=== PATIENT | female | born 1980 | race Caucasian/White ===

== ENCOUNTER 2017-12-20 09:21 | Observation (INO) | payer BC ==
[~2017-12-20] VITALS: Ht 160 cm; Wt 62.0 kg
[2017-12-20 10:17] LABS: BASOPHILS % (AUTO) 0.4 % (0-1); EOSINOPHILS # (AUTO) 0.1 X10'3 (0-0.9); EOSINOPHILS % (AUTO) 1.4 % (0-6); HEMATOCRIT 37.2 % (35.0-45.0); HEMOGLOBIN 12.3 g/dl (12.0-16.0); LYMPHOCYTES # (AUTO) 1.6 X10'3 (1.1-4.8); LYMPHOCYTES % (AUTO) 17.8 % (21-51); MEAN CORPUSCULAR HEMOGLOBIN 24.3 PG (27.0-31.0); MEAN CORPUSCULAR HGB CONC 33.1 % (33.0-36.5); MEAN CORPUSCULAR VOLUME 73.4 FL (78-98); MEAN PLATELET VOLUME 8.4 FL (7.4-10.4); MONOCYTES # (AUTO) 0.6 X10'3 (0-0.9); MONOCYTES % (AUTO) 7.2 % (2-12); NEUTROPHILS # (AUTO) 6.6 X10'3 (1.8-7.7); NEUTROPHILS % (AUTO) 73.2 % (42-75); PLATELET COUNT 349 X10'3 (140-440); RED BLOOD COUNT 5.07 X10'6 (4.20-5.60)
[2017-12-20] MEDS ORDERED: charcoal, activated 50 GM/240 ML bottle PO ONE (10:25)
[2017-12-20] MEDS ORDERED: charcoal/sorbitol 50gm/240ml suspension PO ONE (10:30)
[2017-12-20 10:56] LABS: ACETAMINOPHEN < 2.0 UG/ML (10-30); ALANINE AMINOTRANSFERASE 26 U/L (12-78); ALBUMIN 3.6 G/DL (3.4-5.0); ALBUMIN/GLOBULIN RATIO 0.8 (1.1-1.5); ALKALINE PHOSPHATASE 62 IU/L (46-116); ANION GAP 11 (8-16); ASPARTATE AMINO TRANSFERASE 25 U/L (10-37); BILIRUBIN,TOTAL 0.4 MG/DL (0.1-1.0); BLOOD UREA NITROGEN 13 MG/DL (7-18); BUN/CREATININE RATIO 15.9 (6.6-38.0); CALCIUM 8.7 MG/DL (8.5-10.1); CHLORIDE 108 MMOL/L (99-107); CREATININE 0.82 MG/DL (0.40-0.90); ETHANOL < 0.010 GM/DL (0.0-0.010); GLUCOSE 98 MG/DL (70-104); SODIUM 139 MMOL/L (135-145); TOTAL PROTEIN 8.1 G/DL (6.4-8.2); eGFR 78 ML/MIN
[2017-12-20 10:57] LABS: POTASSIUM 3.4 MMOL/L (3.5-5.1)
[2017-12-20 11:07] LABS: URINE HCG NEGATIVE (NEG)
[2017-12-20 11:08] LABS: GLUCOSE, URINE Negative (Neg); KETONES,URINE Negative (Neg); LEUKOCYTE ESTERASE ,URINE Negative (Neg); NITRITES, URINE Negative (Neg); OCCULT BLOOD,URINE Small (Neg); PH,URINE 6.5 (4.8-8.0); PROTEIN,URINE Negative (Neg); UROBILINOGEN,URINE 0.2 E.U/dL (0.2-1.0)
[2017-12-20 11:19] LABS: URINE AMPHETAMINE SCREEN NEGATIVE (Neg); URINE BARBITUATE SCREEN NEGATIVE (Neg); URINE BENZODIAZEPINES SCREEN NEGATIVE (Neg); URINE CANNABINOID SCREEN NEGATIVE (Neg); URINE COCAINE SCREEN NEGATIVE (Neg); URINE METHADONE SCREEN NEGATIVE (Neg); URINE OPIATE SCREEN POSITIVE (Neg); URINE PHENCYCLIDINE SCREEN NEGATIVE (Neg)
[2017-12-20 11:20] LABS: CLARITY,URINE Slightly Cloudy (Clear); COLOR,URINE Straw (Yellow); UA COLLECTION TYPE CLN CATCH MIDSTREAM
[2017-12-20 11:46] LABS: BACTERIA,URINE 2+ /HPF (Neg); MUCUS STRANDS NONE SEEN /LPF (Neg); RBC,URINE 0-2 /HPF (0-2); SQUAMOUS EPITHELIAL CELL,UR MANY /LPF (FEW); WBC,URINE NONE SEEN /HPF (0-4)
[2017-12-20] MEDS ORDERED: acetaminophen 325mg tablet PO ONE (12:40)
[2017-12-20] MEDS ORDERED: magnesium 2GM in 50ml NS 50 ML IV PRN (13:50)
[2017-12-20] MEDS ORDERED: magnesium Cl slow-release 64mg tablet PO PRN (13:50)
[2017-12-20] MEDS ORDERED: ondansetron/PF 4mg/2ml inj IV PRN (13:50)
[2017-12-20] MEDS ORDERED: potassium Cl 20 mEq SR tablet PO PRN ×2 (13:50)
[2017-12-20] MEDS ORDERED: mag hydrox/Alum hydrox/simeth 30ml oral suspension PO PRN (13:50)
[2017-12-20] MEDS ORDERED: acetaminophen 325mg tablet PO PRN (13:50)
[2017-12-20] MEDS ORDERED: bisacodyl 10mg suppository rectal RC PRN (13:50)
[2017-12-20] MEDS ORDERED: magnesium 4gm in 100ml NS 100 ML IV PRN (13:50)
[2017-12-20] MEDS ORDERED: potassium Cl 40MEQ/NS 500ml 500 ML IV PRN ×2 (13:50)
[2017-12-20] MEDS ORDERED: magnesium hydroxide 30ml (MOM) UD suspension PO PRN (13:50)
[2017-12-20] MEDS ORDERED: SUMAtriptan 25 MG tablet PO ONE (13:55)
[2017-12-20] MEDS: potassium Cl 20mEq in NS 1,000 ML IV SCH ×4 (14:07→22:45)
[2017-12-20 14:32] LABS: ALANINE AMINOTRANSFERASE 26 U/L (12-78); ALBUMIN 3.6 G/DL (3.4-5.0); ALBUMIN/GLOBULIN RATIO 0.8 (1.1-1.5); ALKALINE PHOSPHATASE 66 IU/L (46-116); ANION GAP 15 (8-16); ASPARTATE AMINO TRANSFERASE 17 U/L (10-37); BILIRUBIN,TOTAL 0.3 MG/DL (0.1-1.0); BLOOD UREA NITROGEN 11 MG/DL (7-18); BUN/CREATININE RATIO 12.4 (6.6-38.0); CALCIUM 8.6 MG/DL (8.5-10.1); CHLORIDE 111 MMOL/L (99-107); CREATINE KINASE 90 U/L (26-192); CREATININE 0.89 MG/DL (0.40-0.90); GLUCOSE 106 MG/DL (70-104); POTASSIUM 3.6 MMOL/L (3.5-5.1); SODIUM 145 MMOL/L (135-145); TOTAL CARBON DIOXIDE 19.1 MMOL/L (24-32); TOTAL PROTEIN 8.2 G/DL (6.4-8.2); eGFR 71 ML/MIN
[2017-12-20] MEDS ORDERED: normal saline 500ml IV soln 1,000 ML IV ONE (16:10)
[2017-12-20] MEDS ORDERED: TRAZ-143 PO (16:24)
[2017-12-20] MEDS ORDERED: TOPI25TA15 PO (16:24)
[2017-12-20] MEDS ORDERED: HYDR-3972 PO (16:24)
[2017-12-20] MEDS ORDERED: ESCI20TA38 PO (16:24)
[2017-12-20] MEDS ORDERED: nyquil PO (16:27)
[2017-12-20 18:00] VITALS: BP 106/64
[2017-12-20 18:58] LABS: ALANINE AMINOTRANSFERASE 24 U/L (12-78); ALBUMIN 3.2 G/DL (3.4-5.0); ALBUMIN/GLOBULIN RATIO 0.7 (1.1-1.5); ALKALINE PHOSPHATASE 61 IU/L (46-116); ANION GAP 13 (8-16); ASPARTATE AMINO TRANSFERASE 18 U/L (10-37); BILIRUBIN,TOTAL 0.3 MG/DL (0.1-1.0); BLOOD UREA NITROGEN 8 MG/DL (7-18); BUN/CREATININE RATIO 9.4 (6.6-38.0); CHLORIDE 112 MMOL/L (99-107); CREATINE KINASE 88 U/L (26-192); CREATININE 0.85 MG/DL (0.40-0.90); GLUCOSE 99 MG/DL (70-104); POTASSIUM 3.5 MMOL/L (3.5-5.1); SODIUM 145 MMOL/L (135-145); TOTAL CARBON DIOXIDE 20.3 MMOL/L (24-32); TOTAL PROTEIN 7.6 G/DL (6.4-8.2); eGFR 75 ML/MIN
[2017-12-20 20:00] VITALS: BP_SYST 104; BP_SYST 115; BP_SYST 123; BP_DIAS 62; BP_DIAS 66; BP_DIAS 69
[2017-12-20] MEDS: docusate sod 100mg capsule PO SCH (20:00)
[2017-12-20 22:00] VITALS: BP 104/62
[2017-12-20 22:40] LABS: ALANINE AMINOTRANSFERASE 24 U/L (12-78); ALBUMIN 3.1 G/DL (3.4-5.0); ALBUMIN/GLOBULIN RATIO 0.7 (1.1-1.5); ALKALINE PHOSPHATASE 59 IU/L (46-116); ANION GAP 12 (8-16); ASPARTATE AMINO TRANSFERASE 17 U/L (10-37); BILIRUBIN,TOTAL 0.3 MG/DL (0.1-1.0); BLOOD UREA NITROGEN 7 MG/DL (7-18); BUN/CREATININE RATIO 8.6 (6.6-38.0); CALCIUM 8.3 MG/DL (8.5-10.1); CHLORIDE 112 MMOL/L (99-107); CREATINE KINASE 90 U/L (26-192); CREATININE 0.81 MG/DL (0.40-0.90); GLUCOSE 105 MG/DL (70-104); POTASSIUM 3.5 MMOL/L (3.5-5.1); SODIUM 145 MMOL/L (135-145); TOTAL CARBON DIOXIDE 20.9 MMOL/L (24-32); TOTAL PROTEIN 7.4 G/DL (6.4-8.2); eGFR 80 ML/MIN
[2017-12-21] VITALS (7 sets, daily range): BP systolic 89–136; BP diastolic 50–75
[2017-12-21 02:46] LABS: ALANINE AMINOTRANSFERASE 23 U/L (12-78); ALBUMIN 2.8 G/DL (3.4-5.0); ALBUMIN/GLOBULIN RATIO 0.7 (1.1-1.5); ALKALINE PHOSPHATASE 53 IU/L (46-116); ANION GAP 10 (8-16); ASPARTATE AMINO TRANSFERASE 18 U/L (10-37); BILIRUBIN,TOTAL 0.4 MG/DL (0.1-1.0); BLOOD UREA NITROGEN 8 MG/DL (7-18); BUN/CREATININE RATIO 10.8 (6.6-38.0); CALCIUM 8.1 MG/DL (8.5-10.1); CHLORIDE 114 MMOL/L (99-107); CREATINE KINASE 77 U/L (26-192); CREATININE 0.74 MG/DL (0.40-0.90); GLUCOSE 92 MG/DL (70-104); MAGNESIUM 1.8 MG/DL (1.5-2.4); POTASSIUM 3.5 MMOL/L (3.5-5.1); SODIUM 145 MMOL/L (135-145); TOTAL CARBON DIOXIDE 20.9 MMOL/L (24-32); TOTAL PROTEIN 6.7 G/DL (6.4-8.2); eGFR 88 ML/MIN
[2017-12-21] MEDS: docusate sod 100mg capsule PO SCH (08:00)
[2017-12-21] MEDS ORDERED: K and/or MAG REPLACEMENT MC SCH (08:00)
== END 2017-12-21 17:59 ==
LOC: ER 09:22 → ED HOLD 13:03 → PCU 3S 17:45 → CMPBEDREQ 19:45 → PCU 3S 12-21 12:40
PROVIDERS: ADMIT Internal Medicine; ATTEND Internal Medicine
DX: F33.2 Major depressive disorder, recurrent severe without psychotic features (principal); T46.4X2A Poisoning by angiotensin-converting-enzyme inhibitors, intentional self-harm, initial encounter; T46.6X2A Poisoning by antihyperlipidemic and antiarteriosclerotic drugs, intentional self-harm, initial encounter; T47.1X2A Poisoning by other antacids and anti-gastric-secretion drugs, intentional self-harm, initial encounter; E87.6 Hypokalemia; E66.9 Obesity, unspecified; F41.9 Anxiety disorder, unspecified; Y92.89 Other specified places as the place of occurrence of the external cause; Z86.59 Personal history of other mental and behavioral disorders; Z91.5 Personal history of self-harm
CPT/HCPCS: 36415; 80053; 80305; 80320; 80329; 81001; 81025; 82550; 83735; 84443; 84484; 85025; 87070; 93005; 96365; 96366; 99285; G0378; J7030

== ENCOUNTER 2017-12-21 16:30 | Inpatient (IN) | payer BC ==
[~2017-12-21] VITALS: Ht 160 cm; Wt 62.0 kg
[~2017-12-21 16:30] MED LIST: ESCI20TA38 PO; HYDR-3972 PO; TOPI25TA15 PO; TRAZ-143 PO; nyquil PO
[2017-12-21] MEDS ORDERED: hydrOXYzine 25 MG tablet PO PRN (20:25)
[2017-12-21] MEDS ORDERED: acetaminophen 325mg tablet PO PRN ×2 (20:25)
[2017-12-21] MEDS ORDERED: magnesium hydroxide 30ml (MOM) UD suspension PO PRN (20:25)
[2017-12-21] MEDS ORDERED: mag hydrox/Alum hydrox/simeth 30ml oral suspension PO PRN (20:25)
[2017-12-21] MEDS: topiramate 25mg tablet PO SCH (20:57)
[2017-12-21] MEDS: traZODone 50mg tablet PO PRN (20:57)
[2017-12-21 22:05] VITALS: BP 140/76
[2017-12-22 07:59] VITALS: BP 110/69
[2017-12-22] MEDS ORDERED: citalopram 20mg tablet PO SCH (08:00)
[2017-12-22] MEDS: HYDROcodone/acetaminophen 10/325mg tab PO PRN ×2 (12:17→20:21)
[2017-12-22] MEDS ORDERED: venlafaxine XR 37.5mg cap (Q24H) PO ONE (14:45)
[2017-12-22 19:09] VITALS: BP 130/79
[2017-12-22] MEDS: traZODone 50mg tablet PO PRN (20:20)
[2017-12-22] MEDS: topiramate 25mg tablet PO SCH (20:20)
[2017-12-23 08:00] VITALS: BP 124/68
[2017-12-23] MEDS: venlafaxine XR 75mg capsule (Q24H) PO SCH (08:16)
[2017-12-23] MEDS ORDERED: SUMAtriptan 25 MG tablet PO ONE (09:00)
[2017-12-23] MEDS: traZODone 50mg tablet PO PRN ×2 (21:03→22:53)
[2017-12-23] MEDS: topiramate 25mg tablet PO SCH (21:03)
[2017-12-23] MEDS: HYDROcodone/acetaminophen 10/325mg tab PO PRN (23:52)
[2017-12-24 08:00] VITALS: BP 105/84
[2017-12-24] MEDS: venlafaxine XR 75mg capsule (Q24H) PO SCH (08:17)
[2017-12-24] MEDS ORDERED: VENL75CA61 PO (12:40)
[2017-12-24] MEDS ORDERED: TRAZ-143 PO (12:40)
[2017-12-24] MEDS ORDERED: HYDR-3686 PO (12:40)
== END 2017-12-24 14:10 | disposition home or self-care (01) | DRG 885 ==
LOC: ADULT MH 16:30
PROVIDERS: ADMIT Psychiatry & Neurology Psychiatry; ATTEND Psychiatry & Neurology Psychiatry
DX: F33.2 Major depressive disorder, recurrent severe without psychotic features (principal); E66.9 Obesity, unspecified; E87.6 Hypokalemia; F41.9 Anxiety disorder, unspecified; M54.9 Dorsalgia, unspecified; G43.909 Migraine, unspecified, not intractable, without status migrainosus; Z68.24 Body mass index [BMI] 24.0-24.9, adult; Z82.49 Family history of ischemic heart disease and other diseases of the circulatory system; Z86.59 Personal history of other mental and behavioral disorders
CPT/HCPCS: 99285; Q0177